=== PATIENT | female | born 1980 | race Caucasian/White ===

== ENCOUNTER 2016-12-08 09:24 | Outpatient (CLI) | payer OTHER ==
--- NOTE | 2016-12-09 10:40 | CONSULTATION REPORT ---
CONSULTING PHYSICIAN: Dr. Abdulaziz Murphy HISTORY OF PRESENT ILLNESS: Judi Harrison is a 36-year-old white woman self-referred for continued management of uveitis. Her symptoms began in May 18, 2014, when she was diagnosed with iritis in the right eye. This was an erupt and sudden onset. She was fully evaluated and screened for autoimmune diseases including lupus and tuberculosis. She was found to have a positive HLA-B27 and was referred to a fish hatchery supervisor and Imuran was instituted. Her back was evaluated at that time. She was having some back discomfort and tenderness. More recently, her back pain has increased. Her eyes, however, are doing well. Her last eye exam was in October of this year and no new activity was appreciated. She has had no other associated symptoms. PAST MEDICAL HISTORY: 1. Two pregnancies, 1 miscarriage. 2. Cataracts. 3. Glaucoma. 4. Measles. PAST SURGICAL HISTORY: 1. . 2. [place] teeth extraction. PRESENT MEDICATIONS: 1. Imuran 100 mg daily. 2. Singulair 10 mg daily. 3. Flonase. 4. Nortriptyline 10 mg at bedtime as needed. 5. Flexeril 10 mg at bedtime as needed. 6. Iron supplements. 7. vitamins. 8. Vitamin D. 9. Super B. ALLERGIES: She reports no drug allergies. SOCIAL HISTORY: The patient is . Her is a dress draper and new in town. No smoking. No drinking. They moved from [place]. The patient was born in [place], [place]. FAMILY HISTORY: Family history is negative from a rheumatological point of view. REVIEW OF SYSTEMS: Her review of systems is positive for eye pain but no loss of vision. Otherwise , no change in her weight. No fatigue, weakness, or fevers. No mouth sores. No genital sores. No skin rashes, hives, photosensitivity. No chest pain, shortness of breath, cough or wheezing, nausea, vomiting, or diarrhea. No dark stools or bloody stools. No urinary symptoms. No excessive worries or anxiety. No numbness or tingling of her extremities. PHYSICAL EXAMINATION: General: On exam, she looks well. Vital Signs: Weight: 237. Height: 5 feet 3 inches. T: 97.6, R: 12, Heart rate of 109, BP: 146/96. HEENT: Sclerae are anicteric. Conjunctivae are pink. No stomatitis or glossitis. External ear and nose are unremarkable. She has a little skin thickening behind the right ear, but there was no psoriasis. She has no alopecia. No parotid or submandibular swelling. LUNGS: Clear with no crackles, wheezing, or rubs. HEART: Regular rhythm. ABDOMEN: Soft and nontender. VASCULAR: No edema or cyanosis. NAIL EXAM: Showed no pitting. SKIN: The rest of the skin exam showed no lesions. PERIPHERAL JOINTS: The DIPs, PIPs, MCPs, wrists, elbows, shoulders, hips, knees , ankles, feet, and Achilles tendon are all unremarkable. Testing for sacroiliac pain was negative. IMPRESSION: 1. History of uveitis, HLA-B27 positive. 2. High risk drug. 3. Low back pain. 4. Obesity. 5. Hypertension. PLAN: 1. We will continue to monitor the patient. 2. We will check her labs for disease activity and drug toxicity today. 3. She will obtain the x-rays that were done in [place] a few months ago. In the meantime, I am x-raying her sacroiliac joints. 4. Will ip counsel on weight loss. 5. Hypertension, we will monitor. 6. We will refer her to [facility], as per the patient's request for continued primary care. Thank you very much. TK
== END 2016-12-08 09:25 ==
LOC: RHEU 09:24
PROVIDERS: ATTEND Internal Medicine
DX: Z79.899 Other long term (current) drug therapy (principal); M54.5 Low back pain; E66.09 Other obesity due to excess calories; I10 Essential (primary) hypertension
CPT/HCPCS: 99214

== ENCOUNTER 2017-03-02 14:08 | Outpatient (CLI) | payer OTHER ==
[2017-03-02 14:38] LABS: BASOPHILS % 0.6 (0.0-1.5); MEAN CORPUSCULAR HEMOGLOBIN 29.6 pg (28.0-34.0); MEAN CORPUSCULAR VOLUME 87.5 fl (80.0-100.0); MONOCYTES % 3.3 % (0.0-11.0); NEUTROPHILS # 8.4 # k/uL (1.4-7.7)
[2017-03-02 14:55] LABS: eGFR (African) > 60; eGFR (Non-African) > 60
== END 2017-03-02 14:10 ==
LOC: LAB 14:08
PROVIDERS: ATTEND Internal Medicine
DX: Z79.899 Other long term (current) drug therapy (principal)
CPT/HCPCS: 36415; 72202; 80053; 85025; 85651; 86140

== ENCOUNTER 2017-03-09 09:04 | Outpatient (CLI) | payer OTHER ==
--- NOTE | 2017-03-09 14:49 | OP Clinic Progress Note ---
REASON FOR VISIT: Gabbie Harrison returns for follow up of [id number] uveitis. Her eye is doing well. She has had no symptoms. Her next eye exam is in 2 weeks. Her back is doing well. She has joined the [employer] and she has been doing regular exercises and her pain is now zero over 10. Rest of her systems reviewed, no fevers, chills, sweats, chest pain, shortness of breath, cough, wheezing, nausea, vomiting, or diarrhea. PAST MEDICAL HISTORY: 1. Two pregnancies. 2. One miscarriage. 3. Cataracts. 4. Glaucoma. 5. Measles. 6. . PRESENT MEDICATIONS: 1. Imuran 100 mg daily. 2. Singulair 10 mg daily. 3. Flonase. 4. Nortriptyline 10 mg at bedtime. 5. Flexeril 10 mg at bedtime as needed. 6. Iron. 7. vitamins. 8. Vitamin D. 9. Super B complex supplements. ALLERGIES: She has no drug allergies. SOCIAL HISTORY: Remains unchanged. REVIEW OF SYSTEMS: Lot of stress at home. Some issues with her [id number], otherwise, no fevers , chills, sweats, chest pain, shortness of breath, cough, wheezing, nausea or vomiting. She does admit that she has not been taking very good care of herself , but has decided to start dieting and exercise. PHYSICAL EXAMINATION: VITAL SIGNS: BP: 155/96, T: 97.2, R: 18, heart rate 100. HEENT: Sclerae are anicteric. Conjunctivae are pink. No stomatitis or glossitis. LUNGS: Clear with no crackles, wheezing, or rubs. HEART: Regular rhythm. ABDOMEN: Soft. VASCULAR: No edema or cyanosis. SKIN AND NAIL: Exam is unremarkable. PERIPHERAL JOINTS: DIPs, PIPs, MCPs, wrists, elbows, shoulders, hips, knees, ankles, and feet are unremarkable. IMPRESSION: 1. Uveitis, HLA-B27, in remission. 2. High risk drug. No evidence of toxicity. Patient had labs on March 02 and those were reviewed. White count is 13.2, hemoglobin 13.9, platelets slightly elevated at 537,000. Sedimentation rate was 34. CRP is slightly elevated at 2.85, otherwise, CMP is unremarkable, except for a non-fasting glucose of 140. 3. Low back pain. Continue exercise regimen. 4. Obesity. Again, discussed the importance of diet. 5. Hypertension. Prescribed a low-salt diet and continued weight loss, otherwise, will need medical intervention. PLAN: I will see her back in 3 months. Thank you very much. Best regards, TK
== END 2017-03-09 09:05 ==
LOC: RHEU 09:04
PROVIDERS: ATTEND Internal Medicine
DX: Z79.899 Other long term (current) drug therapy (principal); M54.5 Low back pain; E66.9 Obesity, unspecified; I10 Essential (primary) hypertension
CPT/HCPCS: 99213

== ENCOUNTER → 2017-06-08 | Outpatient (CLI) | payer OTHER ==
--- NOTE | 2017-06-08 12:35 | OP Clinic Progress Note ---
REASON FOR VISIT: Gabbie Harrison returns for follow up on her [id number] uveitis. She is doing well. Her last eye exam was in October. She has had no symptoms. No red eyes, painful eyes, or change in her vision. Her back is doing well. She continues to exercise as much as possible. She has not managed, however, to lose any weight. PAST MEDICAL HISTORY: 1. Two pregnancies. 2. One miscarriage. 3. Cataract surgery. 4. Glaucoma. 5. Measles. 6. . PRESENT MEDICATIONS: 1. Imuran 50 mg 2 tablets daily. 2. Singulair 10 mg daily. 3. Flonase. 4. Nortriptyline 10 mg at bedtime. 5. Flexeril 10 mg at bedtime as needed. 6. She is on iron supplements. 7. vitamins. 8. Vitamin D. 9. Super-B complex. ALLERGIES: She has no drug allergies. SOCIAL HISTORY: She is to a [employer] developer. REVIEW OF SYSTEMS: Recently got a cold which has resolved with no difficulty and otherwise, no fevers, chills, sweats, chest pain, shortness of breath, cough, wheezing, nausea , vomiting, or diarrhea. PHYSICAL EXAMINATION: VITAL SIGNS: Weight: 260. T: 97, R: 20, heart rate of 100, BP: 160/96. HEENT: Sclerae are anicteric. Conjunctivae are pink. No stomatitis or glossitis. LUNGS: Clear with no crackles, wheezing, or rubs. HEART: Regular rhythm. No extra heart sounds. ABDOMEN: Soft and nontender. VASCULAR: No edema or cyanosis. SKIN AND NAIL: No pitting. No rashes. JOINTS: DIPs, PIPs, MCPs, wrists, elbows, shoulders, hips, knees, ankles, and feet are unremarkable. DIAGNOSTIC STUDIES: Her labs from March 02 were again reviewed. White count at that time was 13.2. Sedimentation rate was 34. Hemoglobin was normal at 13.9. CMP was within normal limits. IMPRESSION: 1. HLA-B27 associated uveitis, stable. 2. High risk drug. No evidence of drug toxicity. We will check her labs for disease activity and drug toxicity today. 3. Obesity. Discussed a weight loss program. 4. Hypertension. She will monitor her blood pressure and report it to her primary care physician. Thank you very much. TK
== END ==
LOC: RHEU 09:32
PROVIDERS: ATTEND Internal Medicine
DX: H20.9 Unspecified iridocyclitis (principal); Z79.899 Other long term (current) drug therapy; I10 Essential (primary) hypertension; E66.9 Obesity, unspecified
CPT/HCPCS: 99214; G0463